=== PATIENT | female | born 1985 | race Caucasian/White ===

== ENCOUNTER 2019-07-29 08:25 | Day surgery (SDC) | payer OTHER ==
[~2019-07-29 08:25] MED LIST: BUFFERED LIDOCAINE 10 ML SYRINGE ONE; CEFAZOLIN SODIUM IN 0.9 % NACL 2 GM/100 ML BAG IV ONE
[2019-07-29] MEDS ORDERED: ONDANSETRON 4 MG/2 ML VIAL IVP ONE (08:26)
[2019-07-29] MEDS ORDERED: PROPOFOL 200 MG/20 ML VIAL IVP ONE (08:26)
[2019-07-29] MEDS ORDERED: GLYCOPYRROLATE 1 MG/5 ML VIAL IVP ONE (08:26)
[2019-07-29] MEDS ORDERED: KETOROLAC 30 MG/ML VIAL IVP ONE (08:26)
[2019-07-29] MEDS ORDERED: fentaNYL 100 MCG/2 ML VIAL IVP ONE (08:26)
[2019-07-29] MEDS ORDERED: DEXAMETHASONE 4 MG/ML VIAL IVP ONE (08:26)
[2019-07-29] MEDS ORDERED: LIDOCAINE-MPF 2% 5 ML VIAL IM ONE (08:26)
[2019-07-29] MEDS ORDERED: LACTATED RINGERS 1,000 ML IV ONE (08:37)
[2019-07-29 08:48] LABS: HCG UR QUAL NEGATIVE
--- NOTE | 2019-07-29 11:17 | ANESTHESIA ---
Pre-Anesthesia VS, & Labs - Diagnosis Left breast mass - Procedure LEft breast mass excision after needle localization Vital Signs: Temp Pulse Resp BP Pulse Ox 36.2 C L 64 16 116/70 98 07/29/19 08:38 07/29/19 08:38 07/29/19 08:38 07/29/19 08:38 07/29/19 08:38 Height 5 ft 10 in Weight (kg) 81 kg - NPO >8 hours - Is Patient ?: No Home Medications and Allergies Home Medications: Ambulatory Orders Multivitamin [Multiple Vitamins] 1 each PO DAILY 07/25/19 Norgestimate-Ethinyl Estradiol [Tri-Linyah] 1 each PO DAILY 07/25/19 Multivitamin [Multiple Vitamins] 1 each PO DAILY 07/25/19 Norgestimate-Ethinyl Estradiol [Tri-Linyah] 1 each PO DAILY 07/25/19 Allergies/Adverse Reactions: Allergies Allergy/AdvReac Type Severity Reaction Status Date / Time No Known Drug Allergies Allergy Verified 07/25/19 15:46 Anes History & Medical History - Anesthetic History Anesthesia Complications: reports: No previous complications - Medical History Cardiovascular: reports: None Pulmonary: reports: None Gastrointestinal: reports: None Urinary: reports: None Neuro: reports: None Musculoskeletal: reports: None Endocrine/Autoimmune: reports: None Skin: reports: None Smoking Status: Never smoker Psychosocial: reports: No issues indicated - Surgical History General: Other (Right breast lumpectomy) Exam General: Alert, Oriented x3, Cooperative, No acute distress Dental: WNL Mouth Openin Fingerbreadth Neck Mobility: Normal Mallampati classification: I Thyromental Distance: greater than 6 cm Respiratory: Lungs clear, Normal breath sounds, No respiratory distress, No accessory muscle use Cardiovascular: Regular rate, Normal S1, Normal S2, No murmurs Mental/Cognitive Status: Alert/Oriented X3, Normal for patient Plan Anesthesia Type: General Consent for Procedure(s) Verified and Reviewed: Yes Code Status: Attempt Resuscitation ASA classification: 1-Healthy patient Is this case an emergency?: No
[2019-07-29] MEDS ORDERED: BUFFERED LIDOCAINE 10 ML SYRINGE IU ONE (12:55)
[2019-07-29] MEDS ORDERED: BUPIVACAINE 0.5% PF 30 ML VIAL ONE (13:14)
[2019-07-29] MEDS ORDERED: LIDOCAINE 1%-EPI 1:100000 20 ML MDV ONE (13:14)
--- NOTE | 2019-07-29 13:38 | Ultrasound Report ---
Reason: LT AXILLA LESION Procedure Date: 07/29/2019 Accession Number: [id number] / [id number] Procedure: US - Wire Each Additional Lesion CPT Code: 88963 Final Report FULL RESULT: EXAM: Wire Localization, Wire Each Additional Lesion DATE: 07/29/2019 10:30 AM CLINICAL HISTORY: LT AXILLA MASSES COMPARISON: PROCEDURE: Ultrasound-guided needle wire localization of left axilla/breast axillary tail masses. CLINICAL DATA: Targeted masses measuring 1.7 x 0.5 x 0.5 and 1.4 x 0.9 1.1 cm with irregular margins in the axillary tail of the left breast. Informed consent was obtained. Using standard aseptic technique, 1% buffered lidocaine was injected into the left breast axilla tail for local anesthesia. A guiding needle was advanced into each lesion under direct ultrasound guidance in real time and the localization wire was deployed through each needle. The wound was dressed and the external portion of the localization wire needle combination was secured. The patient was transferred to the preoperative area. The patient appeared to tolerate the procedure well. IMPRESSION: Ultrasound-guided wire localization with 2 wires of masses in the left axilla. RADIA
--- NOTE | 2019-07-29 13:38 | Ultrasound Report ---
Reason: LT AXILLA MASSES Procedure Date: 07/29/2019 Accession Number: [id number] / [id number] Procedure: US - Wire Localization CPT Code: Final Report FULL RESULT: EXAM: Wire Localization, Wire Each Additional Lesion DATE: 07/29/2019 10:30 AM CLINICAL HISTORY: LT AXILLA MASSES COMPARISON: PROCEDURE: Ultrasound-guided needle wire localization of left axilla/breast axillary tail masses. CLINICAL DATA: Targeted masses measuring 1.7 x 0.5 x 0.5 and 1.4 x 0.9 1.1 cm with irregular margins in the axillary tail of the left breast. Informed consent was obtained. Using standard aseptic technique, 1% buffered lidocaine was injected into the left breast axilla tail for local anesthesia. A guiding needle was advanced into each lesion under direct ultrasound guidance in real time and the localization wire was deployed through each needle. The wound was dressed and the external portion of the localization wire needle combination was secured. The patient was transferred to the preoperative area. The patient appeared to tolerate the procedure well. IMPRESSION: Ultrasound-guided wire localization with 2 wires of masses in the left axilla. RADIA
[2019-07-29] MEDS ORDERED: LIDOCAINE 1%-EPI 1:100000 30 ML MDV SUBQ ONE ×2 (14:09)
[2019-07-29] MEDS ORDERED: BUPIVACAINE 0.5% PF 30 ML VIAL INFIL ONE ×2 (14:09)
--- NOTE | 2019-07-29 14:40 | OPERATIVE REPORT ---
Operative Report - General Procedure Date: 07/29/19 Planned Procedure: Excision of left axillary mass after needle localization Pre-Op Diagnosis: Left axillary mass/breast mass Procedure Performed: Excision of left axillary mass/breast mass Post Op Diagnosis: Same - Procedure Note Primary Surgeon: Cam Anesthesia Provider: SHANICE Alcaraz Anesthesia Technique: General LMA Pathology: Specimen oriented and submitted to pathology in formalin Estimated Blood Loss (mL): 5 Findings: Serpiginous structure in the more superior portion of the mass consistent with a duct filled with inspisated material Remaining tissue and mass visually consistent with axillary breast tissue. Complications: None apparent - Other Other Information/Narrative: After obtaining informed consent, the patient is brought to the operating room and placed in the supine position on the operating table. Following successful induction of general anesthesia, appropriate padding of all bony prominences, and placement of appropriate monitors, the left axilla was prepped and draped in the standard surgical fashion. A timeout was held per scope protocol. All elements of the surgical safety checklist were followed before, during, and after the procedure. We began the procedure by removing the existing needles leaving the wires in place. I elected to create an incision between the 2 localizing wires so that we would have access to both areas easily. This was done after infiltrating the area with local anesthetic. Traction and countertraction were then used to dissected the breast and fatty tissue of the identified mass from the overlying dermis of the skin and underlying axillary node packet. The mass was very well circumscribed and seem to be attached primarily to the skin. It was easily lif pam from the underlying axillary node packet. The inferior wire remained in place easily and the mass was removed intact. We will began to dissected the superior wire free, it was very superficial and pulled easily out of the breast tissue. Fortunately, we could clearly see a serpiginous structure consistent with a duct filled with inspissated material in the location of the wire. This was left in place and the entire mass delivered into the field en bloc. The wound was then checked for hemostasis and irrigated with warm saline solution. The specimen was oriented with a short stitch superior, long stitch lateral, and double stitch anterior. The more inferior wire and the mass was left in place. This was passed from the table as a specimen and placed in formalin. The wound was then checked once again for hemostasis. No bleeding was appreciated. It was then closed in 2 layers with Vicryl and Monocryl sutures and Dermabond was applied to the skin. Once the Dermabond was dry, a small pressure dressing was placed in the axilla to encourage the skin to retain a natural shape. All sponge, needle, and instrument counts were correct at the conclusion of the case. The patient was allowed awaken from anesthesia without difficulty and taken to the postanesthesia care unit in good condition.
[2019-07-29] MEDS ORDERED: oxyCODONE 5 MG TABLET PO PRN (14:43)
[2019-07-29] MEDS ORDERED: IBUPROFEN 600 MG TABLET PO PRN (14:43)
[2019-07-29] MEDS ORDERED: ONDANSETRON 4 MG/2 ML VIAL IVP PRN (14:43)
[2019-07-29] MEDS ORDERED: ACETAMINOPHEN 325 MG TABLET PO PRN (14:43)
[2019-07-29 16:22] VITALS: BP 117/71
== END 2019-07-29 08:26 | disposition home or self-care (01) ==
LOC: SDS 08:25
PROVIDERS: ATTEND Surgery
PROC: 0HBU0ZZ Excision of Left Breast, Open Approach (ICD-10-PCS; principal; 2019-07-29 11:15)
DX: N60.12 Diffuse cystic mastopathy of left breast (principal); Z80.8 Family history of malignant neoplasm of other organs or systems
CPT/HCPCS: 19125; 19285; 19286; 81025; J0690; J7120

== ENCOUNTER 2021-09-09 07:00 | Outpatient (CLI) | payer OTHER ==
[2021-09-09 20:28] LABS: BILIRUBIN,URINE NEGATIVE (NEGATIVE); GLUCOSE, URINE (UA) NEGATIVE (NEGATIVE); KETONES,URINE (UA) NEGATIVE (NEGATIVE); LEUKOCYTE ESTERASE, URINE TRACE (NEGATIVE); NITRITE,URINE NEGATIVE (NEGATIVE); OCCULT BLOOD,URINE LARGE (NEGATIVE); PROTEIN,URINE 30 mg/dL (NEGATIVE); UROBILINOGEN,URINE 0.2 (NORMAL) E.U./dL (NORMAL)
[2021-09-09 20:31] LABS: CLARITY,URINE HAZY (CLEAR)
[2021-09-09 20:43] LABS: BACTERIA,URINE Many /HPF (None Seen); SQUAMOUS EPITHELIAL CELL,UR RARE Squamous (<= Few); WBC,URINE >25 /HPF (0-5)
== END 2021-09-09 23:59 | disposition home or self-care (01) ==
LOC: LAB 07:00
PROVIDERS: ATTEND Physician Assistant Medical
DX: R30.0 Dysuria (principal)
CPT/HCPCS: 81001; 87086; 87181

== ENCOUNTER 2022-08-10 14:43 | Outpatient (CLI) | payer OTHER | END 2022-08-10 23:59 | disposition home or self-care (01) | LOC: LAB 14:43 | PROVIDERS: ATTEND Internal Medicine | DX: N39.0 Urinary tract infection, site not specified (principal) | CPT/HCPCS: 87077; 87086; 87181 ==

== ENCOUNTER 2023-07-04 08:00 | Outpatient (CLI) | payer OTHER | END 2023-07-04 23:59 | disposition home or self-care (01) | LOC: LAB.S 08:00 | PROVIDERS: ATTEND Registered Nurse | DX: N39.0 Urinary tract infection, site not specified (principal) | CPT/HCPCS: 87086 ==

== ENCOUNTER 2023-09-19 14:52 | Outpatient (CLI) | payer OTHER ==
[2023-09-19 19:52] LABS: BASOPHILS % (AUTO) 0.5 %; EOSINOPHILS # (AUTO) 0.1 10^3/uL (0.0-0.7); EOSINOPHILS % (AUTO) 0.9 %; HCT - HEMATOCRIT 38.7 % (37.0-47.0); HGB - HEMOGLOBIN 12.5 g/dL (12.0-16.0); LYMPHOCYTES # (AUTO) 2.4 10^3/uL (1.5-3.5); MEAN CORPUSCULAR HEMOGLOBIN 31.4 pg (27.0-31.0); MEAN CORPUSCULAR HGB CONC 32.3 g/dL (32.0-36.0); MEAN CORPUSCULAR VOLUME 97.2 fL (81.0-99.0); MEAN PLATELET VOLUME 9.8 fL (7.9-10.8); MONOCYTES # (AUTO) 0.5 10^3/uL (0.0-1.0); MONOCYTES % (AUTO) 5.9 %; NEUTROPHILS # (AUTO) 5.2 10^3/uL (1.5-6.6); NEUTROPHILS % (AUTO) 63.6 %; PLT - PLATELET COUNT 261 10^3/uL (130-450); RED BLOOD COUNT 3.98 10^6/uL (4.20-5.40); RED CELL DISTRIBUTION WIDTH 11.4 % (12.0-15.0); WHITE BLOOD COUNT 8.1 x10^3/uL (4.8-10.8)
[2023-09-19 20:10] LABS: ALBUMIN 4.4 g/dL (3.2-5.5); ALBUMIN/GLOBULIN RATIO 1.8 (1.0-2.2); ALKALINE PHOSPHATASE 53 IU/L (42-121); ALT ALANINE AMINOTRANSFERASE 19 IU/L (10-60); AST ASPARTATE AMINOTRANSFERASE 22 IU/L (10-42); BILIRUBIN,TOTAL 0.8 mg/dL (0.2-1.0); BUN - BLOOD UREA NITROGEN 10 mg/dL (6-20); CALCIUM 9.4 mg/dL (8.5-10.3); CARBON DIOXIDE - CO2 28 mmol/L (21-32); CHLORIDE 105 mmol/L (101-111); CHOLESTEROL 221 mg/dL; CREATININE 0.7 mg/dL (0.6-1.3); GFR - MDRD 93 (>89); GLUCOSE 86 mg/dL (74-104); SODIUM 137 mmol/L (135-145); TOTAL PROTEIN 6.9 g/dL (6.4-8.9); TRIGLYCERIDES 95 mg/dL (48-352); VLDL CHOLESTEROL 19 mg/dL
[2023-09-19 20:24] LABS: THYROID STIMULATING HORMONE 1.87 uIU/mL (0.34-5.60)
[2023-09-19 20:58] LABS: CHOL/HDL RATIO 3.7 (<4.4); HDL CHOLESTEROL 60 mg/dL; LDL CHOLESTEROL,CALCULATED 142 mg/dL; LDL/HDL RATIO 2.4 (<4.4)
== END 2023-09-19 14:53 | disposition home or self-care (01) ==
LOC: LAB.S 14:52
PROVIDERS: ATTEND Registered Nurse
DX: Z13.21 Encounter for screening for nutritional disorder (principal); Z13.228 Encounter for screening for other metabolic disorders; Z13.29 Encounter for screening for other suspected endocrine disorder; Z13.0 Encounter for screening for diseases of the blood and blood-forming organs and certain disorders involving the immune mechanism; Z13.220 Encounter for screening for lipoid disorders
CPT/HCPCS: 36415; 80053; 80061; 82306; 83721; 84443; 85025